=== PATIENT | female | born 1980 | race Hispanic/Latino ===

== ENCOUNTER 2017-11-26 13:53 | Emergency (ER) | payer OTHER, SELFPAY ==
[2017-11-26 14:35] LABS: Absolute Lymphocytes (CBC) 3.8 K/uL (0.7-4.9); Absolute Monocytes 0.7 K/uL (0.1-1.3); Absolute Neutrophil 6.7 K/uL (1.8-8.0); Basophils % 0.6 % (0-1.3); Eosinophils % 0.9 % (0-4.4); Hematocrit 44.3 % (36.0-45.0); Lymphocytes % 33.4 % (15.3-44.8); MCH 30.2 pg (27.0-35.0); MCV 91.6 fL (80-100); MPV 10.6 fL (7.6-11.3); Monocytes % 6.2 % (3.3-12.3); RBC Red Blood Cell Count 4.84 M/uL (3.86-4.86)
[2017-11-26 14:46] LABS: Bicarbonate 26 mEq/L (21-31); Glucose Level 127 mg/dL (65-120); Potassium 3.6 mEq/L (3.6-5.0); Sodium Level 138 mEq/L (135-145)
[2017-11-26 14:47] LABS: BUN Blood Urea Nitrogen 16 mg/dL (6-20); Glomerular Filtration Rate > 90 mL/min (=/>90)
[2017-11-26] MEDS ORDERED: NA CHLORIDE 0.9% 1,000 ML ONE (14:49)
[2017-11-26] MEDS ORDERED: cloNIDine HCl 0.1 MG TAB ONE (14:49)
[2017-11-26 15:26] LABS: Thyroid Stimulating Hormone 1.85 uIU/mL (0.34-5.60)
[2017-11-26 15:53] LABS: Urine Blood NEGATIVE (NEG); Urine Glucose NEGATIVE (NEG); Urine Protein NEGATIVE (NEG); Urine Specific Gravity 1.015 (1.005-1.030)
[2017-11-26 16:33] LABS: Urine Bacteria >50 /HPF (<20); Urine Culture Reflex Order REFLEXED; Urine RBC <5 /HPF (NONE SEEN)
--- NOTE | 2017-11-26 17:00 | ER ---
Nurse's Notes [facility] Name: Aram Pricne Age: 37 yrs Sex: Female : 1980 Arrival Date: 11/26/2017 Time: 13:58 Bed 5 Private MD: Diagnosis: Chest pain, unspecified;Hypertension Presentation: 11/26 14:02 Presenting complaint: Patient states: Last night I got tightness in my chest and jaw on la1 the right side and became flushed and was sweating for about 20 or 30 minutes. I sat on the chair and I got better. Pt denies chest pain now. Transition of care: patient was not received from another setting of care. Onset of symptoms was November 26, 2017. Care prior to arrival: None. 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 - Social history:: Smoking status: Patient/guardian denies using tobacco. - Family history:: not pertinent. - Hospitalizations: : No recent hospitalization is reported. Screenin:15 Abuse screen: Denies threats or abuse. Denies injuries from another. Nutritional sv screening: No deficits noted. Tuberculosis screening: No symptoms or risk factors identified. Fall Risk None identified. Assessment: 14:15 General: Appears in no apparent distress. comfortable, slender, well developed, sv Behavior is calm, cooperative, appropriate for age. Pain: Denies pain. Neuro: Level of Consciousness is awake, alert, obeys commands, Oriented to person, place, time, situation, Moves all extremities. Full function Gait is steady, Speech is normal, Denies weakness blurred vision dizziness. Cardiovascular: Reports yesterday in the evening she felt some epigastric tightness and right jaw pain but went away shortly after happening. Denies lightheadedness, palpitations, shortness of breath, Heart tones S1 S2 present Patient's skin is warm and dry. Pulses are 3+ in right radial artery and left radial artery Chest pain is denied. Respiratory: Airway is patent Respiratory effort is even, unlabored, Respiratory pattern is regular, symmetrical, Breath sounds are clear bilaterally. GI: Patient currently denies diarrhea, nausea, vomiting. Derm: Skin is pink, warm \T\ dry. Musculoskeletal: Range of motion: intact in all extremities. 15:56 Reassessment: Patient appears in no apparent distress at this time. No changes from sv previously documented assessment. Patient and/or family updated on plan of care and expected duration. Pain level reassessed. Patient is alert, oriented x 3, equal unlabored respirations, skin warm/dry/pink. 17:10 Reassessment: Patient appears in no apparent distress at this time. No changes from sv previously documented assessment. Patient and/or family updated on plan of care and expected duration. Pain level reassessed. Patient is alert, oriented x 3, equal unlabored respirations, skin warm/dry/pink. Vital Signs: 14:04 BP 190 / 105; Pulse 125; Resp 16; Temp 99.0(TE); Pulse Ox 99% on R/A; Weight 67.59 kg; la1 Height 5 ft. 0 in. (152.40 cm); 14:19 BP 184 / 106; Pulse 99; Resp 18; Pulse Ox 100% on R/A; sv 15:06 BP 159 / 101; Pulse 87; Resp 16; Pulse Ox 100% on R/A; sv 15:55 BP 166 / 100; Pulse 90; Resp 18; Pulse Ox 100% on R/A; sv 16:09 BP 157 / 100; Pulse 77; Resp 16; Pulse Ox 100% on R/A; sv 14:04 Body Mass Index 29.10 (67.59 kg, 152.40 cm) la1 ED Course: 13:58 Patient arrived in ED. sb2 14:04 Triage completed. la1 14:04 Arm band placed on left wrist. la1 14:07 Quinton Gilliam MD is Attending Physician. rn 14:15 Patient has correct armband on for positive identification. Bed in low position. Call sv light in reach. Pulse ox on. NIBP on. Door closed. Head of bed elevated. 14:15 Patient maintains SpO2 saturation greater than 95% on room air. sv 14:20 Initial lab(s) drawn, by me, sent to lab. Flu and/or RSV swab sent to lab. Inserted sv saline lock: 20 gauge in right antecubital area, using aseptic technique. Blood collected. Flushed right antecubital with 5 ml normal saline. 14:33 Lawanda Lewis, RN is Primary Nurse. sv 14:45 LAB Add On Sent. sv 14:45 D-Dimer Sent. sv 14:45 [place] Screen Profile Sent. sv 14:46 Flu Sent. sv 14:46 Basic Metabolic Panel Sent. sv 14:46 CBC with Diff Sent. sv 14:46 T4 Free Sent. sv 14:46 TSH Sent. sv 15:07 Awaiting re-evaluation by ER provider. sv 15:43 Urine Microscopic Only Sent. sv 15:44 Urine collected: clean catch specimen, clear. sv 15:47 Urine --Ancillary (enter results) Sent. sv 15:47 Urine Dipstick--Ancillary (enter results) Sent. sv 16:18 Awaiting re-evaluation by ER provider. sv 17:10 No provider procedures requiring assistance completed. IV discontinued, intact, sv bleeding controlled, No redness/swelling at site. Pressure dressing applied. Administered Medications: 14:33 Drug: NS 0.9% 1000 ml Route: IV; Rate: 1000 ml; Site: right antecubital; sv 15:30 Follow up: Response: No adverse reaction; IV Status: Completed infusion; IV Intake: sv 1000ml 14:33 Drug: cloNIDine 0.1 mg Route: PO; sv 14:46 Follow up: Response: No adverse reaction sv Intake: 15:00 IV: 500ml; Total: 500ml. sv 15:30 IV: 1000ml; Total: 1500ml. sv Outcome: 16:58 Discharge ordered by . rn 17:10 Discharged to home ambulatory, with family. sv 17:10 Condition: stable 17:10 Discharge instructions given to patient, Instructed on discharge instructions, follow up and referral plans. medication usage, Demonstrated understanding of instructions, follow-up care, medications, Prescriptions given X 1. 17:11 Patient left the ED. sv Addendum: 11/29/2017 07:35 Addendum: Culture Results: Positive urine culture. No further action required. Bacteria i w sensitive to prescribed antibiotic. Signatures: Lawanda Lewis, Herlinda Yepez RN, RN RN iw Nieto, Roman, MD MD rn Attema, Lee, RN RN laFaye Hopkins
--- NOTE | 2017-11-26 17:00 | EDPHYS ---
Physician Documentation [facility] Name: Aram Prince Age: 37 yrs Sex: Female : 1980 Arrival Date: 11/26/2017 Time: 13:58 Bed 5 Private MD: ED Physician Quinton Gilliam HPI: 11/26 16:42 This 37 yrs old Female presents to ER via Ambulatory with complaints of High rn Blood Pressure, chest pain. 16:43 The patient has elevated blood pressure and discovered this at home. Onset: The rn symptoms/episode began/occurred last night. Modifying factors:. Severity of symptoms: At its worst the blood pressure was moderate, in the emergency department the blood pressure is unchanged. The patient has experienced similar episodes in the past. Reports last night noticed chest pain, jaw pain, high blood pressure, intermittent since last night, pain free after 20 min, currently pain free, no fever/cough/vomiting/diarrhea, denies drug use, works out extensively, states drank monster yesterday, unsure if what she felt was indigestion. . 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 - Social history:: Smoking status: Patient/guardian denies using tobacco. - Family history:: not pertinent. - Hospitalizations: : No recent hospitalization is reported. ROS: 16:43 Constitutional: Negative for fever, chills, and weight loss, Eyes: Negative for injury, rn pain, redness, and discharge, Neck: Negative for injury, pain, and swelling, Cardiovascular: Negative for palpitations, and edema, Respiratory: Negative for shortness of breath, cough, wheezing, and pleuritic chest pain, Abdomen/GI: Negative for abdominal pain, nausea, vomiting, diarrhea, and constipation, Back: Negative for injury and pain, MS/Extremity: Negative for injury and deformity, Skin: Negative for injury, rash, and discoloration, Neuro: Negative for headache, weakness, numbness, tingling, and seizure. Exam: 16:43 Constitutional: This is a well developed, well nourished patient who is awake, alert, rn and in no acute distress. Head/Face: Normocephalic, atraumatic. Eyes: Pupils equal round and reactive to light, extra-ocular motions intact. Lids and lashes normal. Conjunctiva and sclera are non-icteric and not injected. Cornea within normal limits. Periorbital areas with no swelling, redness, or edema. Neck: Trachea midline, no thyromegaly or masses palpated, and no cervical lymphadenopathy. Supple, full range of motion without nuchal rigidity, or vertebral point tenderness. No Meningismus. Cardiovascular: Regular rate and rhythm with a normal S1 and S2. No gallops, murmurs, or rubs. Normal PMI, no JVD. No pulse deficits. Respiratory: Lungs have equal breath sounds bilaterally, clear to auscultation and percussion. No rales, rhonchi or wheezes noted. No increased work of breathing, no retractions or nasal flaring. Abdomen/GI: Soft, non-tender, with normal bowel sounds. No distension or tympany. No guarding or rebound. No evidence of tenderness throughout. MS/ Extremity: Pulses equal, no cyanosis. Neurovascular intact. Full, normal range of motion. Equal circumference. Neuro: Awake and alert, GCS 15, oriented to person, place, time, and situation. Cranial nerves II-XII grossly intact. Motor strength 5/5 in all extremities. Sensory grossly intact. Cerebellar exam normal. Normal gait. Vital Signs: 14:04 BP 190 / 105; Pulse 125; Resp 16; Temp 99.0(TE); Pulse Ox 99% on R/A; Weight 67.59 kg; la1 Height 5 ft. 0 in. (152.40 cm); 14:19 BP 184 / 106; Pulse 99; Resp 18; Pulse Ox 100% on R/A; sv 15:06 BP 159 / 101; Pulse 87; Resp 16; Pulse Ox 100% on R/A; sv 15:55 BP 166 / 100; Pulse 90; Resp 18; Pulse Ox 100% on R/A; sv 16:09 BP 157 / 100; Pulse 77; Resp 16; Pulse Ox 100% on R/A; sv 14:04 Body Mass Index 29.10 (67.59 kg, 152.40 cm) la1 MDM: 14:07 Patient medically screened. rn 16:43 Differential diagnosis: hypertensive crisis, Malignant HTN, asymptomatic hypertension. rn Data reviewed: vital signs, nurses notes, lab test result(s), EKG, and as a result, I will discharge patient. Counseling: I had a detailed discussion with the patient and/or guardian regarding: the historical points, exam findings, and any diagnostic results supporting the discharge/admit diagnosis, lab results, the need for outpatient follow up, to return to the emergency department if symptoms worsen or persist or if there are any questions or concerns that arise at home. 16:43 Special discussion: I discussed with the patient/guardian in detail that at this point rn there is no indication for admission to the hospital. It is understood, however, that if the symptoms persist or worsen the patient needs to return immediately for re-evaluation. 16:43 Special discussion: Based on the history and exam findings, there is no indication for rn further emergent testing or inpatient evaluation. I discussed with the patient/guardian the need to see the light technician for further evaluation of the symptoms. 11/26 14:22 Order name: TSH rn 11/26 14:22 Order name: T4 Free rn 11/26 14:22 Order name: CBC with Diff rn 11/26 14:22 Order name: Basic Metabolic Panel rn 11/26 14:22 Order name: Flu rn 11/26 14:22 Order name: [place] Screen Profile rn 11/26 14:22 Order name: Urine Microscopic Only rn 11/26 14:36 Order name: CBC with Automated Diff; Complete Time: 14:42 EDMS 11/26 14:42 Order name: D-Dimer rn 11/26 14:44 Order name: LAB Add On bd 11/26 14:46 Order name: Basic Metabolic Panel; Complete Time: 15:30 EDGA 11/26 14:49 Order name: Influenza Screen (A ; Complete Time: 15:30 EDGA 11/26 14:50 Order name: [place] Screen; Complete Time: 15:30 EDGA 11/26 14:55 Order name: D-Dimer; Complete Time: 15:30 EDGA 11/26 14:22 Order name: IV Start; Complete Time: 14:46 rn 11/26 14:22 Order name: Urine Test (obtain specimen); Complete Time: 15:43 rn 11/26 14:22 Order name: Urine Dipstick-Ancillary (obtain specimen); Complete Time: 14:45 rn 11/26 15:12 Order name: T4 Free; Complete Time: 15:30 EDMS 11/26 15:27 Order name: Thyroid Stimulating Hormone; Complete Time: 15:30 EDMS 11/26 15:42 Order name: Urine Dipstick--Ancillary (enter results) bd 11/26 15:42 Order name: Urine --Ancillary (enter results) bd 11/26 15:53 Order name: Urine --Ancillary; Complete Time: 16:10 EDMS 11/26 15:53 Order name: Urine Dipstick-Ancillary; Complete Time: 16:10 EDMS 11/26 16:34 Order name: Urine Microscopic Only; Complete Time: 16:42 EDMS Administered Medications: 14:33 Drug: NS 0.9% 1000 ml Route: IV; Rate: 1000 ml; Site: right antecubital; sv 15:30 Follow up: Response: No adverse reaction; IV Status: Completed infusion; IV Intake: sv 1000ml 14:33 Drug: cloNIDine 0.1 mg Route: PO; sv 14:46 Follow up: Response: No adverse reaction sv Disposition: 11/26/17 16:58 Discharged to Home. Impression: Chest pain, unspecified, Hypertension. - Condition is Stable. - Discharge Instructions: Nonspecific Chest Pain, Hypertension. - Prescriptions for Macrobid 100 mg Oral Capsule - take 1 capsule by ORAL route every 12 hours for 7 days; 14 capsule. - Medication Reconciliation Form, Thank You Letter, Antibiotic Education, Prescription Opioid Use form. - Follow up: Private Physician; When: As needed; Reason: Recheck today's complaints, Re-evaluation by your physician. - Problem is new. - Symptoms have improved. Signatures: Dispatcher [employer] Lawanda Garsia, RN Quinton Martinez MD MD rn Attema, Lee, RN RN la1
[2017-11-26 17:17] VITALS: TEMP 99
[2017-11-26 17:19] VITALS: O2SAT 100
[2017-11-26 17:23] VITALS: BP 157/100
== END 2017-11-26 17:11 | disposition home or self-care (01) ==
LOC: ER 13:53
DX: I10 Essential (primary) hypertension (principal)
CPT/HCPCS: 36415; 80048; 81003; 81015; 81025; 84439; 84443; 85025; 85379; 86308; 87077; 87086; 87088; 87186; 87804; 96360; 99284; J7030